=== PATIENT | male | born 1975 | race Caucasian/White ===

== ENCOUNTER 2022-08-30 12:46 | Emergency (ER) | payer OTHER ==
[~2022-08-30] VITALS: Ht 175.3 cm; Wt 99.8 kg
[2022-08-30 12:50] VITALS: BP_SYST 148
[2022-08-30 15:41] VITALS: BP_SYST 128
== END 2022-08-30 15:41 | disposition home or self-care (01) ==
LOC: SED 12:46
DX: M79.622 Pain in left upper arm (principal); Z79.899 Other long term (current) drug therapy
CPT/HCPCS: 73030; 99284

== ENCOUNTER 2022-10-03 05:30 | Day surgery (SDC) | payer OTHER ==
[2022-09-30 10:13] LABS: BASOPHILS # (AUTO) 0.1 K/uL (0.0-0.2); EOSINOPHILS # (AUTO) 0.2 K/uL (0.0-0.4); EOSINOPHILS % (AUTO) 2.9 % (0.0-4.0); HEMATOCRIT 48.8 % (36-54); HEMOGLOBIN 16.9 g/dL (14.0-18.0); LYMPHOCYTES # (AUTO) 1.5 K/uL (1.0-5.5); LYMPHOCYTES % (AUTO) 26.7 % (20.5-51.5); MEAN CORPUSCULAR HEMOGLOBIN 32 pg (27-31); MEAN CORPUSCULAR HGB CONC 35 % (32-36); MEAN CORPUSCULAR VOLUME 92 fL (79.0-98.0); MONOCYTES # (AUTO) 0.7 K/uL (0.0-1.0); MONOCYTES % (AUTO) 12.4 % (1.7-9.3); NEUTROPHILS # (AUTO) 3.3 K/uL (1.8-7.7); PLATELET COUNT (AUTO) 221 K/uL (130-430); RED BLOOD CELL COUNT(AUTO) 5.29 MIL/uL (4.2-6.2); RED CELL DISTRIBUTION WIDTH 12.5 % (9.0-15.0); WHITE BLOOD COUNT (AUTO) 5.7 K/uL (4.8-10.8)
[2022-09-30 10:36] LABS: CALCIUM 9.6 mg/dL (8.4-11.0); CREATININE 1.24 mg/dL (0.55-1.30)
[2022-09-30 10:38] LABS: BILIRUBIN,URINE NEGATIVE (NEGATIVE); BLOOD, URINE NEGATIVE (NEGATIVE); CLARITY/URINE CLEAR (CLEAR); COLOR,URINE YELLOW (YELLOW); GLUCOSE,URINE NEGATIVE (NEGATIVE); KETONES,URINE NEGATIVE (NEGATIVE); LEUKOCYTE ESTERASE ,URINE NEGATIVE (NEGATIVE); NITRITE, URINE NEGATIVE (NEGATIVE); PH,URINE 6.5 (5.0-8.0); PROTEIN URINE NEGATIVE (NEGATIVE); UROBILINOGEN,URINE 0.2 (0.2-1.0)
[2022-09-30 11:44] LABS: INR 1.1 (0.80-1.20)
[~2022-10-03] VITALS: Ht 175.3 cm; Wt 99.8 kg
[2022-10-03] MEDS ORDERED: CEFAZOLIN SOD 1 GM in D5W 50 ML IV ONE (07:00)
[2022-10-03] MEDS ORDERED: MIDAZOLAM HCL 5 MG/5 ML VIAL IVP ONE (07:55)
[2022-10-03] MEDS ORDERED: KETOROLAC TROMETHAMINE 30 MG VIAL IVP ONE (07:55)
[2022-10-03] MEDS ORDERED: SEVOFLURANE 15 MIN GAS INH ONE (07:55)
[2022-10-03] MEDS ORDERED: ONDANSETRON HCL 4 MG/2 ML VIAL IVP ONE (07:55)
[2022-10-03] MEDS ORDERED: DEXAMETHASONE SOD PHOSPHATE 4 MG/ML VIAL IVP ONE (07:55)
[2022-10-03] MEDS ORDERED: LR 1,000 ML IV.SOLN IV ONE (07:55)
[2022-10-03] MEDS ORDERED: PROPOFOL 200MG/ 20ML VIAL (DIPRIVAN) IV ONE (07:55)
[2022-10-03] MEDS ORDERED: fentaNYL CITRATE/PF 100 MCG/2 ML AMP IVP ONE (07:55)
[2022-10-03] MEDS ORDERED: NS IRRIG SOLN 1000 ML IR ONE (07:55)
[2022-10-03] MEDS ORDERED: MORPHINE 2 MG/ML INJ. SYRINGE IVP PRN ×2 (08:45)
[2022-10-03] MEDS ORDERED: LR 1,000 ML IV SCH (08:45)
[2022-10-03] MEDS ORDERED: hydrALAZINE HCL 20 MG/ML VIAL IVP PRN (08:45)
[2022-10-03] MEDS ORDERED: LABETALOL 100 MG/ 20ML VIAL IVP PRN (08:45)
[2022-10-03] MEDS ORDERED: MIDAZOLAM HCL 2 MG/2 ML VIAL (VERSED) IVP PRN (08:45)
[2022-10-03] MEDS ORDERED: MEPERIDINE HCL/PF 25 MG/ML DISP.SYRIN IVP PRN (08:45)
[2022-10-03] MEDS ORDERED: METOCLOPRAMIDE HCL 10 MG/2 ML VIAL IVP PRN (08:45)
[2022-10-03] MEDS ORDERED: ACETAMINOPHEN I.V. 1000 MG 100 ML IV ONE (09:59)
[2022-10-03] MEDS ORDERED: MORPHINE 2 MG/ML INJ. SYRINGE ONE (11:42)
[2022-10-03 15:18] VITALS: BP_SYST 136
== END 2022-10-03 12:30 | disposition home or self-care (01) ==
LOC: SDS 05:30 → SMU 05:30 → SDS 12:30
PROVIDERS: ATTEND Orthopaedic Surgery Sports Medicine
DX: S46.212A Strain of muscle, fascia and tendon of other parts of biceps, left arm, initial encounter (principal); Z79.01 Long term (current) use of anticoagulants; X50.0XXA Overexertion from strenuous movement or load, initial encounter; Y93.89 Activity, other specified; Y92.89 Other specified places as the place of occurrence of the external cause; Y99.8 Other external cause status; Z20.822 Contact with and (suspected) exposure to COVID-19
CPT/HCPCS: 80048; 85025; 85610; 85730; 36415 ×2; 81003; 24342; 84132; 93005; 76000; 87426; U0003; J0690; J1100; J1885; J2250; J2405; J2704; J3010; J2270; J7060; J7120; A4565; C1713; J0131; 76001

== ENCOUNTER 2023-02-17 08:35 | Emergency (ER) | payer BC, OTHER ==
[~2023-02-17] VITALS: Ht 175.3 cm; Wt 97.5 kg
--- NOTE | 2023-02-17 08:42 | NUR ---
Patient to ER bed to gown for evaluation. Side rails up.
--- NOTE | 2023-02-17 08:43 | NUR ---
PT RECEIVED, CARE ASSUMED. PT C/O ALL EXTREMITIES PAIN. PT DENIES ANY INJURY OR TRUAMA. HE STATES HE SUDDENLY HAD PAIN. PT IN ROOM WITH . WILL CONTINUE TO MONITOR
[2023-02-17 08:46] VITALS: BP_SYST 141
--- NOTE | 2023-02-17 08:48 | NUR ---
DR FABIAN IN ROOM FOR EXAM
[2023-02-17] MEDS ORDERED: KETOROLAC TROMETHAMINE 60 MG/2 ML VIAL IM ONE (09:15)
[2023-02-17] MEDS ORDERED: HYDROcodone/ACETAMIN 10-325 MG TAB PO ONE (09:15)
[2023-02-17 09:53] LABS: BASOPHILS # (AUTO) 0.1 K/uL (0.0-0.2); BASOPHILS % (AUTO) 0.4 % (0.0-2.0); EOSINOPHILS # (AUTO) 0.1 K/uL (0.0-0.4); EOSINOPHILS % (AUTO) 0.8 % (0.0-4.0); HEMATOCRIT 45.6 % (36-54); HEMOGLOBIN 15.7 g/dL (14.0-18.0); LYMPHOCYTES # (AUTO) 1.3 K/uL (1.0-5.5); LYMPHOCYTES % (AUTO) 11.3 % (20.5-51.5); MEAN CORPUSCULAR HEMOGLOBIN 32 pg (27-31); MEAN CORPUSCULAR HGB CONC 34 % (32-36); MEAN CORPUSCULAR VOLUME 93 fL (79.0-98.0); MONOCYTES # (AUTO) 1.1 K/uL (0.0-1.0); MONOCYTES % (AUTO) 9.8 % (1.7-9.3); NEUTROPHILS # (AUTO) 9.1 K/uL (1.8-7.7); NEUTROPHILS % (AUTO) 77.7 % (40.0-70.0); PLATELET COUNT (AUTO) 243 K/uL (130-430); RED BLOOD CELL COUNT(AUTO) 4.92 MIL/uL (4.2-6.2); RED CELL DISTRIBUTION WIDTH 12.7 % (9.0-15.0); WHITE BLOOD COUNT (AUTO) 11.7 K/uL (4.8-10.8)
[2023-02-17 10:10] LABS: ERYTHROCYTE SEDIMENTATION RATE 51 MM/HR (0-15)
[2023-02-17 10:12] LABS: CALCIUM 9.6 mg/dL (8.4-11.0); CREATININE 0.96 mg/dL (0.55-1.30)
[2023-02-17 10:16] LABS: ALBUMIN 3.6 g/dL (3.4-4.8); C-REACTIVE PROTEIN QUANT 10.6 mg/dL (0-0.5); TOTAL BILIRUBIN 0.5 mg/dL (0.0-1.0); URIC ACID 5.2 mg/dL (2.4-7.0)
[2023-02-17] MEDS ORDERED: HYDR-3917 PO (10:31)
[2023-02-17] MEDS ORDERED: IBUP-1971 PO (10:31)
[2023-02-17 10:55] VITALS: BP_SYST 138
--- NOTE | 2023-02-17 10:58 | NUR ---
Patient given written and verbal discharge instructions and verbalizes understanding. ER MD discussed with patient the results and treatment provided. Patient in stable condition. ID arm band removed. IV catheter removed intact and dressing applied, no active bleeding. Rx of given. Patient educated on pain management and to follow up with PMD. Pain Scale . Opportunity for questions provided and answered. Medication side effect fact sheet provided.
== END 2023-02-17 10:58 | disposition home or self-care (01) ==
LOC: SED 08:35
DX: M13.88 Other specified arthritis, other site (principal); M79.642 Pain in left hand; M25.571 Pain in right ankle and joints of right foot; M25.512 Pain in left shoulder; Z88.6 Allergy status to analgesic agent; Z79.899 Other long term (current) drug therapy
CPT/HCPCS: 99283; 80053; 84550; 85025; 85651; 86140; 36415; 96372; J1885